=== PATIENT | male | born 1995 | race Hispanic/Latino ===

== ENCOUNTER 2017-04-29 23:58 | Emergency (ER) | payer MEDICAID, SELFPAY ==
[2017-04-30 00:40] LABS: #Basophils 0.1 thou/uL (0.0-0.2); #Eosinphils 0.4 thou/uL (0.0-0.7); #Monocytes 0.8 thou/uL (0.11-0.59); #Neutrophils 5.8 thou/uL (1.40-6.50); %Eosinophils 3.5 % (0.0-10.0); %Lymphocytes 36.2 % (28.0-48.0); %Monocytes 7.3 % (0.0-4.0); Hemoglobin 14.1 g/dL (14.0-18.0); Mean Corpuscular HGB CONC 33.3 g/dL (32.0-36.0); Mean Corpuscular Hemoglobin 29.6 pg (25.0-35.0); Mean Corpuscular Volume 88.9 fl (77.0-87.0); Platelet Count 227 thou/uL (130-400); RBC Distribution Width 11.3 % (11.5-14.5); Red Blood Cell (RBC) Count 4.77 mill/uL (4.00-5.20); White Blood Cell (WBC) Count 11.1 thou/uL (4.8-10.8)
[2017-04-30 00:54] LABS: ALT (SGPT) 15 U/L (8-55); AST (SGOT) 16 U/L (10-45); Albumin 4.4 g/dL (3.5-5.0); Alkaline Phosphatase 112 U/L (Less than 750); Anion Gap 15 mmol/L (10-20); BUN (Urea Nitrogen) 14 mg/dL (8.4-21.0); Bilirubin, Total 0.3 mg/dL (0.2-1.2); CK (CPK) 117 U/L (30-200); Calc. Creatinine Clearance 0 mL/min (70-130); Calcium 9.5 mg/dL (7.8-10.44); Carbon Dioxide 22 mmol/L (22-29); Chloride 109 mmol/L (98-107); Estimated GFR-MDRD Greater than 90; Globulin 2.7 g/dL (2.4-3.5); Glucose 86 mg/dL (70-105); Potassium 3.8 mmol/L (3.5-5.1); Protein, Total 7.1 g/dL (6.0-8.3); Sodium 142 mmol/L (136-145)
[2017-04-30 00:55] LABS: CKMB 0.9 ng/mL (0-6.6); Troponin I Less than 0.010 ng/mL (< 0.028)
[2017-04-30] MEDS ORDERED: Ibuprofen 800 MG TAB ONE (01:03)
--- NOTE | 2017-04-30 09:30 | RAD ---
CHEST 1 VIEW: Date: 04/30/17 HISTORY: Chest pain. COMPARISON: Chest 2 view from July 2011. FINDINGS: There are hazy opacities in both lower lobes, although may be sequelae of technique. Cardiac silhoue tte and mediastinal contour within normal limits. IMPRESSION: Hazy opacities in both lower lobes could be sequelae of technique, although infection or aspiration is within the differential. Low grade edema is also within the differential. Follow-up 2 views of est recommended. POS: [facility]
== END 2017-04-30 01:14 | disposition home or self-care (01) ==
LOC: NAV ERS 23:58
DX: R07.9 Chest pain, unspecified (principal); F17.210 Nicotine dependence, cigarettes, uncomplicated
CPT/HCPCS: 71010; 80053; 82550; 82553; 84484; 85025; 93005